=== PATIENT | male | born 1955 | race Caucasian/White ===

== ENCOUNTER 2020-02-19 10:30 | Outpatient (RCR) | payer MEDICARE, SELFPAY ==
--- NOTE | 2019-11-28 15:20 | PCCPR ---
Sahil states he has achiness to rt knee most all the time 3/10 The pain can increase to 5-[address] less on a flat surface.
--- NOTE | 2019-11-28 15:49 | PCCPR ---
Sahil has DOMITILA wears Bipap He has h/o adult asthma and many outdoor related allergies.
[2019-11-28 15:50] VITALS: BP 118/64; PULSE 65; RESP 16; TEMP 36.5; O2SAT 98
[2019-11-28 15:54] VITALS: PULSE 65
[2019-12-27 11:34] LABS: Glucose Point of Care 111 (65-105)
== END 2020-02-19 12:33 | disposition home or self-care (01) ==
LOC: ANHCPREHAB 10:30
DX: I20.8 Other forms of angina pectoris (principal)
CPT/HCPCS: 93798

== ENCOUNTER 2024-01-05 11:15 | Outpatient (RCR) | payer MEDICARE, SELFPAY ==
[2023-10-05 09:11] VITALS: PULSE 69
[2023-11-24 11:36] LABS: Glucose Point of Care 161 mg/dl (65-105)
[2023-12-30 12:15] LABS: Glucose Point of Care 128 mg/dl (65-105)
== END 2024-01-14 08:37 | disposition home or self-care (01) ==
LOC: ANHCPREHAB 11:15
DX: I20.9 Angina pectoris, unspecified (principal)
CPT/HCPCS: 93798